=== PATIENT | female | born 1980 | race Caucasian/White ===

== ENCOUNTER 2017-11-21 01:52 | Emergency (ER) | payer OTHER ==
[~2017-11-21] VITALS: Ht 152.4 cm; Wt 70.3 kg
[2017-11-21 01:54] VITALS: BP_SYST 158
[2017-11-21] MEDS ORDERED: BENAZEPRIL HCL 10 MG TABLET (LOTENSIN) PO ONE (02:45)
[2017-11-21] MEDS ORDERED: LISINOPRIL 10 MG TABLET (PRINIVIL) PO ONE (02:45)
[2017-11-21 02:58] VITALS: BP_SYST 151
== END 2017-11-21 02:58 ==
LOC: SED 01:52
DX: M25.531 Pain in right wrist (principal); M25.532 Pain in left wrist; I10 Essential (primary) hypertension; V89.2XXA Person injured in unspecified motor-vehicle accident, traffic, initial encounter; Y93.89 Activity, other specified; Y92.89 Other specified places as the place of occurrence of the external cause; Y99.8 Other external cause status
CPT/HCPCS: 99283